=== PATIENT | female | born 1960 | race Caucasian/White ===

== ENCOUNTER 2021-06-21 18:32 | Inpatient (IN) ==
[2021-06-22] MEDS ORDERED: Acetaminophen 325 MG TABLET PO PRN (01:31)
[2021-06-22] MEDS ORDERED: Naloxone 0.4 MG/ML INJ IVP PRN (01:31)
[2021-06-22] MEDS ORDERED: Saline Nasal Spray 44 ML BOTTLE NS PRN (02:13)
[2021-06-22] MEDS ORDERED: Saliva Stimulant 44.3ml BOTTLE PO PRN (02:13)
[2021-06-22 02:14] LABS: Basophils % 0.3 %; Eosinophils % 0.3 %; Hematocrit 39.4 % (35.3-44.9); Hemoglobin 13.5 g/dL (11.5-15.4); Immature Granulocytes % 1.5 % (0-4); Lymphocytes # 1.4 K/mcL (0.6-4.6); Lymphocytes % 11.7 %; Mean Corpuscular HGB Conc 34.3 g/dL (31.6-35.5); Mean Corpuscular Hemoglobin 30.1 pg (28.0-33.3); Mean Corpuscular Volume 87.8 fL (83.0-100.0); Mean Platelet Volume 9.8 fL (9.4-12.4); Monocytes % 8.9 %; Neutrophils # 8.9 K/mcL (1.6-8.9); Platelet Count 321 K/mcL (140-400); Red Blood Count 4.49 M/mcL (3.82-4.97); Red Cell Distribution Width 12.9 % (11.5-14.5); Segmented Neutrophils % 77.3 %; White Blood Count 11.6 K/mcL (4.3-11.1)
[2021-06-22] MEDS ORDERED: *HR* Dextrose 50 % in Water (Syg) 50 ML SYRINGE IVP PRN (02:16)
[2021-06-22] MEDS ORDERED: Dextrose Gel 15 GM/37.5 ML TUBE PO PRN ×2 (02:16)
[2021-06-22] MEDS ORDERED: D5% in Water 1,000 ML IVC PRN (02:16)
[2021-06-22 02:22] LABS: INR 1.1; Prothrombin Time 11.8 Seconds (9.4-12.1)
[2021-06-22 02:25] LABS: Activated Partial Thrombo Time 31.4 Seconds (26.0-36.0)
[2021-06-22 02:34] LABS: Acetaminophen < 10 mcg/mL (10-20); Alanine Aminotransferase 41 Units/L (7-52); Albumin 3.1 g/dL (3.5-5.7); Alkaline Phosphatase 60 Units/L (34-104); Aspartate Amino Transferase 29 Units/L (13-39); BUN/Creatinine Ratio 20 (6-26); Bilirubin,Total 0.5 mg/dL (0.3-1.0); Blood Urea Nitrogen 9 mg/dL (6-20); C-Reactive Protein 99 mg/L (Less than 10); Calcium 8.3 mg/dL (8.6-10.3); Carbon Dioxide 28 mEq/L (23-29); Chloride 100 mEq/L (98-107); Creatine Kinase 261 Units/L (30-223); Glucose 191 mg/dL (70-105); Osmolality,Calculated 286 (280-300); Phosphorous 3.3 mg/dL (2.7-4.5); Potassium 3.3 mEq/L (3.5-5.1); Salicylate < 2.5 mg/dL (15.0-30.0); Sodium 136 mEq/L (136-145); Total Protein 6.1 g/dL (6.4-8.9); eGFR For African Americans > 60 (> 60); eGFR For Non-African Americans > 60 (> 60)
[2021-06-22 02:45] LABS: Lactate Dehydrogenase 285 Units/L (140-271)
[2021-06-22 02:54] LABS: Thyroid Stimulating Hormone 0.523 mcIU/mL (0.340-5.600)
[2021-06-22 03:00] LABS: Ferritin 235 ng/mL (10-120)
[2021-06-22 03:10] LABS: Folate 8.4 ng/mL (3.0-16.0)
[2021-06-22] MEDS ORDERED: Haloperidol Lactate 5 MG/ML VIAL IM PRN (04:21)
[2021-06-22] MEDS: Ipratropium 1 PUFF INHALER IH SCH ×4 (04:24→20:11)
[2021-06-22 05:03] LABS: VBG HCO3 27 mEq/L (21-27); VBG PCO2 36 mmHg (41-51); VBG PH 7.47 pH Units (7.32-7.42); VBG PO2 96 mmHg (25-50)
[2021-06-22] MEDS ORDERED: Isovue-370 500 ML BOTTLE IVP ONE (05:56)
[2021-06-22] MEDS ORDERED: *HR* Heparin 5,000 UNIT/ML VIAL SQ SCH (06:00)
[2021-06-22] MEDS ORDERED: *HR* LORazepam 2 MG/ML VIAL IVP ONE (07:08)
[2021-06-22] MEDS: Budesonide/Formoterol 160/4.5 1 PUFF INH IH SCH ×2 (08:07→20:12)
[2021-06-22] MEDS: Multivit/Ca/Min/Fe/FA 1 TAB TABLET PO SCH (09:35)
[2021-06-22] MEDS: Lactobacillus 1 EACH CAP.SPRINK PO SCH ×2 (09:35→22:07)
[2021-06-22] MEDS: Cholecalciferol (D-3) 1,000 UNIT (25MCG) TABLET PO SCH (09:35)
[2021-06-22] MEDS: Chlorhexidine Rinse 15 ML MOUTHWASH MM SCH ×2 (10:19→19:22)
[2021-06-22] MEDS: Artificial Tears SOLN 15 ML BOTTLE BOTH EYES SCH ×4 (10:19→19:38)
[2021-06-22] MEDS: Nicotine 14 MG PATCH.TD24 TD SCH (10:19)
[2021-06-22] MEDS: Pantoprazole 40 MG VIAL IVP SCH (10:19)
[2021-06-22] MEDS: Saliva Stimulant 44.3ml BOTTLE PO SCH ×5 (10:19→18:47)
[2021-06-22] MEDS: Thiamine (B-1) 100 MG in 0.9 % Sodium Chloride 50 ML IVPB SCH (14:42)
[2021-06-22] MEDS: 0.9 % Sodium Chloride 1,000 ML IVC SCH (15:51)
[2021-06-22 15:53] LABS: HIV-1&2 Antibody & p24 Ag Nonreactive (Nonreactive)
[2021-06-22] MEDS ORDERED: Insulin DETEMIR 100 UNIT/ML X5UNITS SUBQ SCH (21:00)
[2021-06-23] MEDS: Ipratropium 1 PUFF INHALER IH SCH ×4 (03:55→20:37)
[2021-06-23] MEDS: *HR* Enoxaparin 40 MG/0.4 ML SYRINGE SQ SCH (05:12)
[2021-06-23] MEDS: 0.9 % Sodium Chloride 1,000 ML IVC SCH (05:36)
[2021-06-23 06:06] LABS: Bacteria,Urine Few per hpf (None-Few); Bilirubin,Urine Negative (Negative); Blood,Urine Small (Negative); Clarity,Urine Turbid (Clear); Color,Urine Light-Yellow (Yellow); Glucose,Urine (UA) 30 mg/dL (Normal); Ketones,Urine Negative (Negative); Leukocyte Esterase,Urine Moderate (Negative); Mucus,Urine Few per lpf (None-Few); Nitrite,Urine Negative (Negative); PH,Urine 7.5 pH Units (5.0-8.0); Protein,Urine Trace mg/dL (Neg-Trace); Squamous Epithelial Cell,Urine Few per hpf (None-Few); Urobilinogen,Urine Normal (Normal); WBC,Urine 30-50 per hpf (0-3)
[2021-06-23] MEDS: Saliva Stimulant 44.3ml BOTTLE PO SCH ×4 (07:18→07:40)
[2021-06-23] MEDS: Budesonide/Formoterol 160/4.5 1 PUFF INH IH SCH ×2 (07:24→20:37)
[2021-06-23] MEDS ORDERED: Saliva Stimulant 44.3ml BOTTLE PO PRN (07:40)
[2021-06-23] MEDS: Pantoprazole 40 MG VIAL IVP SCH (09:35)
[2021-06-23] MEDS: Nicotine 14 MG PATCH.TD24 TD SCH (09:36)
[2021-06-23] MEDS: Artificial Tears SOLN 15 ML BOTTLE BOTH EYES SCH ×4 (09:37→20:39)
[2021-06-23] MEDS: Chlorhexidine Rinse 15 ML MOUTHWASH MM SCH ×2 (09:39→20:39)
[2021-06-23] MEDS: Cholecalciferol (D-3) 1,000 UNIT (25MCG) TABLET PO SCH (09:39)
[2021-06-23] MEDS: Multivit/Ca/Min/Fe/FA 1 TAB TABLET PO SCH (09:39)
[2021-06-23] MEDS: Lactobacillus 1 EACH CAP.SPRINK PO SCH ×2 (09:39→20:39)
[2021-06-23] MEDS: Thiamine (B-1) 100 MG in 0.9 % Sodium Chloride 50 ML IVPB SCH (12:05)
[2021-06-23] MEDS: Melatonin 3 MG TABLET PO PRN (20:39)
[2021-06-24] MEDS: Ipratropium 1 PUFF INHALER IH SCH ×4 (04:00→19:49)
[2021-06-24 05:51] LABS: Basophils # 0.1 K/mcL (0.0-0.2); Basophils % 0.4 %; Eosinophils % 0.1 %; Hematocrit 39.5 % (35.3-44.9); Hemoglobin 13.5 g/dL (11.5-15.4); Immature Granulocytes % 1.9 % (0-4); Lymphocytes # 3.8 K/mcL (0.6-4.6); Lymphocytes % 26.9 %; Mean Corpuscular HGB Conc 34.2 g/dL (31.6-35.5); Mean Corpuscular Hemoglobin 30.1 pg (28.0-33.3); Mean Corpuscular Volume 88.2 fL (83.0-100.0); Mean Platelet Volume 9.8 fL (9.4-12.4); Monocytes # 1.3 K/mcL (0.0-1.3); Monocytes % 9.1 %; Neutrophils # 8.6 K/mcL (1.6-8.9); Platelet Count 378 K/mcL (140-400); Red Blood Count 4.48 M/mcL (3.82-4.97); Red Cell Distribution Width 12.9 % (11.5-14.5); Segmented Neutrophils % 61.6 %; White Blood Count 13.9 K/mcL (4.3-11.1)
[2021-06-24] MEDS: *HR* Enoxaparin 40 MG/0.4 ML SYRINGE SQ SCH (05:53)
[2021-06-24 06:03] LABS: BUN/Creatinine Ratio 18 (6-26); Blood Urea Nitrogen 9 mg/dL (6-20); Calcium 8.5 mg/dL (8.6-10.3); Carbon Dioxide 32 mEq/L (23-29); Chloride 98 mEq/L (98-107); Glucose 94 mg/dL (70-105); Osmolality,Calculated 282 (280-300); Potassium 3.3 mEq/L (3.5-5.1); Sodium 137 mEq/L (136-145); eGFR For African Americans > 60 (> 60); eGFR For Non-African Americans > 60 (> 60)
[2021-06-24] MEDS: Budesonide/Formoterol 160/4.5 1 PUFF INH IH SCH ×2 (07:43→19:48)
[2021-06-24] MEDS: Chlorhexidine Rinse 15 ML MOUTHWASH MM SCH ×2 (10:06→20:35)
[2021-06-24] MEDS: Artificial Tears SOLN 15 ML BOTTLE BOTH EYES SCH ×4 (10:06→20:35)
[2021-06-24] MEDS: Cholecalciferol (D-3) 1,000 UNIT (25MCG) TABLET PO SCH (10:10)
[2021-06-24] MEDS: Multivit/Ca/Min/Fe/FA 1 TAB TABLET PO SCH (10:10)
[2021-06-24] MEDS: Lactobacillus 1 EACH CAP.SPRINK PO SCH ×2 (10:26→20:35)
[2021-06-24] MEDS: OLANZapine 5 MG TAB.RAPDIS PO SCH (10:27)
[2021-06-24] MEDS: Nicotine 14 MG PATCH.TD24 TD SCH (10:27)
[2021-06-24] MEDS: Thiamine (B-1) 100 MG in 0.9 % Sodium Chloride 50 ML IVPB SCH (10:40)
[2021-06-24] MEDS: Pantoprazole 40 MG VIAL IVP SCH (10:41)
[2021-06-24] MEDS: Potassium Chloride Elixir 20 MEQ/15 ML UDC PO SCH (13:45)
[2021-06-24] MEDS: Melatonin 3 MG TABLET PO PRN (22:45)
[2021-06-25] MEDS ORDERED: traZODone 50 MG TABLET PO ONE (00:47)
[2021-06-25 03:03] LABS: Basophils # 0.1 K/mcL (0.0-0.2); Basophils % 0.6 %; Eosinophils # 0.1 K/mcL (0.0-0.6); Eosinophils % 0.4 %; Hematocrit 43.8 % (35.3-44.9); Hemoglobin 14.6 g/dL (11.5-15.4); Immature Granulocytes % 1.8 % (0-4); Lymphocytes # 3.5 K/mcL (0.6-4.6); Lymphocytes % 21.8 %; Mean Corpuscular HGB Conc 33.3 g/dL (31.6-35.5); Mean Corpuscular Hemoglobin 29.8 pg (28.0-33.3); Mean Corpuscular Volume 89.4 fL (83.0-100.0); Mean Platelet Volume 9.9 fL (9.4-12.4); Monocytes # 1.5 K/mcL (0.0-1.3); Monocytes % 9.2 %; Neutrophils # 10.7 K/mcL (1.6-8.9); Platelet Count 402 K/mcL (140-400); Red Cell Distribution Width 13.1 % (11.5-14.5); Segmented Neutrophils % 66.2 %; White Blood Count 16.2 K/mcL (4.3-11.1)
[2021-06-25] MEDS: Ipratropium 1 PUFF INHALER IH SCH ×4 (03:39→20:55)
[2021-06-25] MEDS: *HR* Enoxaparin 40 MG/0.4 ML SYRINGE SQ SCH (05:21)
[2021-06-25] MEDS: Budesonide/Formoterol 160/4.5 1 PUFF INH IH SCH ×2 (08:07→20:56)
[2021-06-25] MEDS: OLANZapine 5 MG TAB.RAPDIS PO SCH (09:15)
[2021-06-25] MEDS: Potassium Chloride Elixir 20 MEQ/15 ML UDC PO SCH (09:15)
[2021-06-25] MEDS: Lactobacillus 1 EACH CAP.SPRINK PO SCH ×2 (09:15→20:51)
[2021-06-25] MEDS: Cholecalciferol (D-3) 1,000 UNIT (25MCG) TABLET PO SCH (09:15)
[2021-06-25] MEDS: Multivit/Ca/Min/Fe/FA 1 TAB TABLET PO SCH (09:15)
[2021-06-25] MEDS: Pantoprazole 40 MG VIAL IVP SCH (09:16)
[2021-06-25] MEDS: Chlorhexidine Rinse 15 ML MOUTHWASH MM SCH ×2 (09:19→20:51)
[2021-06-25] MEDS: Nicotine 14 MG PATCH.TD24 TD SCH (09:19)
[2021-06-25] MEDS: Artificial Tears SOLN 15 ML BOTTLE BOTH EYES SCH ×4 (09:19→20:51)
[2021-06-25] MEDS: Thiamine (B-1) 100 MG in 0.9 % Sodium Chloride 50 ML IVPB SCH (09:38)
[2021-06-25 12:57] LABS: BUN/Creatinine Ratio 24 (6-26); Blood Urea Nitrogen 15 mg/dL (6-20); Calcium 8.6 mg/dL (8.6-10.3); Carbon Dioxide 25 mEq/L (23-29); Chloride 102 mEq/L (98-107); Glucose 140 mg/dL (70-105); Osmolality,Calculated 287 (280-300); Potassium 4.6 mEq/L (3.5-5.1); Sodium 137 mEq/L (136-145); eGFR For African Americans > 60 (> 60); eGFR For Non-African Americans > 60 (> 60)
[2021-06-26] MEDS: Melatonin 3 MG TABLET PO PRN (00:40)
[2021-06-26] MEDS: Ipratropium 1 PUFF INHALER IH SCH ×4 (04:24→20:11)
[2021-06-26 04:54] LABS: Basophils # 0.1 K/mcL (0.0-0.2); Basophils % 0.7 %; Eosinophils # 0.1 K/mcL (0.0-0.6); Eosinophils % 1.1 %; Hematocrit 40.9 % (35.3-44.9); Hemoglobin 13.9 g/dL (11.5-15.4); Immature Granulocytes % 2.5 % (0-4); Lymphocytes # 3.4 K/mcL (0.6-4.6); Lymphocytes % 25.5 %; Mean Corpuscular Hemoglobin 30.6 pg (28.0-33.3); Mean Corpuscular Volume 90.1 fL (83.0-100.0); Mean Platelet Volume 9.8 fL (9.4-12.4); Monocytes # 1.1 K/mcL (0.0-1.3); Neutrophils # 8.3 K/mcL (1.6-8.9); Platelet Count 356 K/mcL (140-400); Red Blood Count 4.54 M/mcL (3.82-4.97); Segmented Neutrophils % 62.2 %; White Blood Count 13.3 K/mcL (4.3-11.1)
[2021-06-26 05:14] LABS: BUN/Creatinine Ratio 24 (6-26); Blood Urea Nitrogen 15 mg/dL (6-20); Calcium 8.8 mg/dL (8.6-10.3); Carbon Dioxide 29 mEq/L (23-29); Chloride 98 mEq/L (98-107); Glucose 109 mg/dL (70-105); Osmolality,Calculated 281 (280-300); Potassium 3.8 mEq/L (3.5-5.1); Sodium 135 mEq/L (136-145); eGFR For African Americans > 60 (> 60); eGFR For Non-African Americans > 60 (> 60)
[2021-06-26] MEDS: *HR* Enoxaparin 40 MG/0.4 ML SYRINGE SQ SCH (05:54)
[2021-06-26] MEDS: Artificial Tears SOLN 15 ML BOTTLE BOTH EYES SCH ×2 (08:22→10:55)
[2021-06-26] MEDS: OLANZapine 5 MG TAB.RAPDIS PO SCH (08:22)
[2021-06-26] MEDS: Potassium Chloride Elixir 20 MEQ/15 ML UDC PO SCH (08:23)
[2021-06-26] MEDS: Pantoprazole 40 MG VIAL IVP SCH (08:23)
[2021-06-26] MEDS: Lactobacillus 1 EACH CAP.SPRINK PO SCH ×2 (08:23→20:53)
[2021-06-26] MEDS: Multivit/Ca/Min/Fe/FA 1 TAB TABLET PO SCH (08:23)
[2021-06-26] MEDS: Cholecalciferol (D-3) 1,000 UNIT (25MCG) TABLET PO SCH (08:23)
[2021-06-26] MEDS: Nicotine 14 MG PATCH.TD24 TD SCH (08:24)
[2021-06-26] MEDS: Chlorhexidine Rinse 15 ML MOUTHWASH MM SCH (08:24)
[2021-06-26] MEDS: Budesonide/Formoterol 160/4.5 1 PUFF INH IH SCH ×2 (09:47→20:11)
[2021-06-26] MEDS: Thiamine (B-1) 100 MG in 0.9 % Sodium Chloride 50 ML IVPB SCH (09:48)
[2021-06-26 10:44] LABS: Amphetamine Screen,Urine Negative ng/mL (Cutoff=1000); Barbiturate Screen,Urine Negative ng/mL (Cutoff=200); Benzodiazepines Screen,Urine Negative ng/mL (Cutoff=200); Cannabinoid Screen,Urine Negative ng/mL (Cutoff = 50); Cocaine Screen,Urine Negative ng/mL (Cutoff= 300); Opiate Screen,Urine Negative ng/mL (Cutoff=300); Phencyclidine Screen,Urine Negative ng/mL (Cutoff=25)
[2021-06-26] MEDS ORDERED: Sennosides/Docusate Sodium TABLET PO SCH (14:45)
[2021-06-26] MEDS: Sennosides/Docusate Sodium TABLET PO SCH (14:48)
[2021-06-27 01:26] LABS: Basophils # 0.1 K/mcL (0.0-0.2); Basophils % 0.7 %; Eosinophils # 0.1 K/mcL (0.0-0.6); Eosinophils % 0.6 %; Hematocrit 39.6 % (35.3-44.9); Hemoglobin 13.5 g/dL (11.5-15.4); Immature Granulocytes % 3.2 % (0-4); Lymphocytes % 22.2 %; Mean Corpuscular HGB Conc 34.1 g/dL (31.6-35.5); Mean Corpuscular Hemoglobin 30.8 pg (28.0-33.3); Mean Corpuscular Volume 90.2 fL (83.0-100.0); Mean Platelet Volume 9.7 fL (9.4-12.4); Monocytes # 1.4 K/mcL (0.0-1.3); Monocytes % 7.9 %; Neutrophils # 11.7 K/mcL (1.6-8.9); Platelet Count 375 K/mcL (140-400); Red Blood Count 4.39 M/mcL (3.82-4.97); Red Cell Distribution Width 13.2 % (11.5-14.5); Segmented Neutrophils % 65.4 %; White Blood Count 17.9 K/mcL (4.3-11.1)
[2021-06-27 01:45] LABS: BUN/Creatinine Ratio 18 (6-26); Blood Urea Nitrogen 15 mg/dL (6-20); Calcium 8.8 mg/dL (8.6-10.3); Carbon Dioxide 26 mEq/L (23-29); Chloride 98 mEq/L (98-107); Glucose 115 mg/dL (70-105); Osmolality,Calculated 280 (280-300); Potassium 4.2 mEq/L (3.5-5.1); Sodium 134 mEq/L (136-145); eGFR For African Americans > 60 (> 60); eGFR For Non-African Americans > 60 (> 60)
[2021-06-27] MEDS: Ipratropium 1 PUFF INHALER IH SCH ×4 (04:13→19:55)
[2021-06-27] MEDS: *HR* Enoxaparin 40 MG/0.4 ML SYRINGE SQ SCH (05:25)
[2021-06-27] MEDS: Budesonide/Formoterol 160/4.5 1 PUFF INH IH SCH ×2 (07:48→19:55)
[2021-06-27] MEDS: Potassium Chloride Elixir 20 MEQ/15 ML UDC PO SCH (08:21)
[2021-06-27] MEDS: Cholecalciferol (D-3) 1,000 UNIT (25MCG) TABLET PO SCH (08:24)
[2021-06-27] MEDS: Multivit/Ca/Min/Fe/FA 1 TAB TABLET PO SCH (08:24)
[2021-06-27] MEDS: Sennosides/Docusate Sodium TABLET PO SCH (08:24)
[2021-06-27] MEDS: Lactobacillus 1 EACH CAP.SPRINK PO SCH ×2 (08:24→20:52)
[2021-06-27] MEDS: Nicotine 14 MG PATCH.TD24 TD SCH (08:24)
[2021-06-27 10:29] LABS: Amorphous Sediment,Urine Few per hpf (None-Few); Bacteria,Urine Few per hpf (None-Few); Bilirubin,Urine Negative (Negative); Blood,Urine Trace (Negative); Clarity,Urine Turbid (Clear); Color,Urine Yellow (Yellow); Glucose,Urine (UA) Normal (Normal); Ketones,Urine Negative (Negative); Leukocyte Esterase,Urine Large (Negative); Mucus,Urine Few per lpf (None-Few); Nitrite,Urine Positive (Negative); PH,Urine 6.5 pH Units (5.0-8.0); Protein,Urine Trace mg/dL (Neg-Trace); Urobilinogen,Urine Normal (Normal); WBC,Urine 50-100 per hpf (0-3)
[2021-06-27] MEDS ORDERED: OLANZapine 10 MG TAB.RAPDIS PO SCH (21:00)
[2021-06-27] MEDS: Melatonin 3 MG TABLET PO PRN (23:18)
[2021-06-28] MEDS ORDERED: *HR* LORazepam 2 MG/ML VIAL IVP ONE (01:24)
[2021-06-28] MEDS: Ipratropium 1 PUFF INHALER IH SCH (03:42)
[2021-06-28] MEDS: *HR* Enoxaparin 40 MG/0.4 ML SYRINGE SQ SCH (06:58)
[2021-06-28 07:22] VITALS: BP 95/66; PULSE 74; TEMP 97.8; O2SAT 95
[2021-06-28 09:22] LABS: Basophils # 0.1 K/mcL (0.0-0.2); Basophils % 0.4 %; Eosinophils # 0.1 K/mcL (0.0-0.6); Eosinophils % 0.3 %; Hematocrit 40.1 % (35.3-44.9); Hemoglobin 13.5 g/dL (11.5-15.4); Immature Granulocytes % 1.7 % (0-4); Lymphocytes # 2.1 K/mcL (0.6-4.6); Lymphocytes % 10.2 %; Mean Corpuscular HGB Conc 33.7 g/dL (31.6-35.5); Mean Corpuscular Hemoglobin 30.6 pg (28.0-33.3); Mean Corpuscular Volume 90.9 fL (83.0-100.0); Mean Platelet Volume 9.9 fL (9.4-12.4); Monocytes % 4.6 %; Neutrophils # 17.2 K/mcL (1.6-8.9); Platelet Count 354 K/mcL (140-400); Red Blood Count 4.41 M/mcL (3.82-4.97); Red Cell Distribution Width 13.3 % (11.5-14.5); Segmented Neutrophils % 82.8 %; White Blood Count 20.8 K/mcL (4.3-11.1)
[2021-06-28] MEDS: Budesonide/Formoterol 160/4.5 1 PUFF INH IH SCH (10:11)
[2021-06-28] MEDS: Nicotine 14 MG PATCH.TD24 TD SCH (10:27)
[2021-06-28] MEDS: Sennosides/Docusate Sodium TABLET PO SCH (10:28)
[2021-06-28] MEDS: Lactobacillus 1 EACH CAP.SPRINK PO SCH (10:28)
[2021-06-28] MEDS: Multivit/Ca/Min/Fe/FA 1 TAB TABLET PO SCH (10:28)
[2021-06-28] MEDS: Cholecalciferol (D-3) 1,000 UNIT (25MCG) TABLET PO SCH (10:28)
[2021-06-28] MEDS ORDERED: cefTRIAXone 1,000 MG in 0.9 % Sodium Chloride 10 ML IVP SCH (15:00)
[2021-06-28] MEDS ORDERED: CefTRIAXone 1,000 MG VIAL IM ONE (15:14)
== END 2021-06-28 16:48 | DRG 137 ==
LOC: 2ANU → SUATTDRO 06-22 00:53 → 2ANU 06-27 21:10
PROVIDERS: ADMIT Internal Medicine; ATTEND Internal Medicine